=== PATIENT | female | born 2000 | race Caucasian/White ===

== ENCOUNTER 2020-11-05 14:00 | Emergency (ER) | payer OTHER ==
[~2020-11-05] VITALS: Wt 113.4 kg
[2020-11-05] MEDS ORDERED: CEPHALEXIN500 M1 PO (15:37)
== END 2020-11-05 21:26 | disposition home or self-care (01) ==
LOC: ED 14:00
DX: L03.012 Cellulitis of left finger (principal); Z88.0 Allergy status to penicillin